=== PATIENT | male | born 2000 | race Native Hawaiian/Other Pacific Islander ===

== ENCOUNTER 2023-04-03 15:55 | Emergency (ER) | payer OTHER ==
[~2023-04-03] VITALS: Ht 172 cm; Wt 72.5 kg
[2023-04-03 15:57] VITALS: BP 139/69
--- NOTE | 2023-04-03 16:13 | ED Head Injury ---
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 This occurred shortly prior to arrival. He knows he bit his tongue and he has difficulty opening his mouth all the way now. He did have loss of consciousness and has been vomiting since then. He is also having some right ear pain. His tetanus is up-to-date. Denies any pain anywhere else on his body. Allergies and Home Medications Allergies Coded Allergies: Penicillins (Verified Allergy, Unknown, 04/03/23) Sulfa (Sulfonamide Antibiotics) (Verified Allergy, Unknown, 04/03/23) Patient Home Medication List Home Medication List Reviewed: Yes Clindamycin HCl (Clindamycin HCl) 300 Mg Capsule, 300 MG PO TID Prescribed by: DEIRDRE MORTENSEN on 04/03/23 170 Hydrocodone/Acetaminophen (Hydrocodone-Acetamin 5-325 mg) 5 Mg-325 Mg Tablet, 1 TAB PO Q6H PRN for PAIN-MODERATE (5-7) Prescribed by: DEIRDRE MORTENSEN on 04/03/23 170 Ondansetron (Ondansetron Odt) 4 Mg Tab.rapdis, 4 MG SL Q6H PRN for NAUSEA/VOMITING Prescribed by: DEIRDRE MORTENSEN on 04/03/23 1708 Review of Systems Review of Systems Constitutional: No fever Eyes: No Symptoms Reported Ears, Nose, Mouth, Throat: see HPI Respiratory: no symptoms reported Cardiovascular: no symptoms reported Gastrointestinal: no symptoms reported Genitourinary: no symptoms reported Musculoskeletal: see HPI Skin: see HPI Psychiatric/Neurological: No Symptoms Reported Past [id number]-Nrfdyq Hx Past Medical History Surgeries: Yes Tonsillectomy Physical Exam Vital Signs Vital Signs - First Documented 04/03/23 15:57 Temp 36.6 Pulse 75 Resp 16 B/P (MAP) 139/69 (92) Pulse Ox 100 O2 Delivery Room Air Capillary Refill : Height, Weight, BMI Height: '" Weight: lbs. oz. kg; BMI Method: General Appearance: WD/WN, no apparent distress HEENT: PERRL/EOMI, TMs normal, pharynx normal, other (blood in the canal on the right with normal TM, minor trismus with right jaw pain, laceration to the bottom right side of tongue) Neck: non-tender, full range of motion, supple, normal inspection Cardiovascular: regular rate, rhythm, no edema, no murmur Respiratory: chest non-tender, lungs clear, normal breath sounds, no respiratory distress, no accessory muscle use Gastrointestinal: normal bowel sounds, non tender, soft; No distended, No guarding, No rebound Back: normal inspection, no CVA tenderness, no vertebral tenderness Extremities: normal range of motion, non-tender, normal inspection, no pedal edema, no calf tenderness, normal capillary refill Psychiatric: alert, oriented x 3 Crainal Nerves: normal hearing, normal speech, PERRL Coordination/Gait: normal finger to nose, normal gait Motor/Sensory: no motor deficit, no sensory deficit Skin: normal color, warm/dry, other (chin laceration) Isela Coma Score Best Eye Response: (4) Open Spontaneously Best Verbal Response: (5) Oriented Best Motor Response: (6) Obeys Commands Procedures/Interventions Wound Location: Face Other Wound Location chin x2 (1.5cm and 2 cm) tongue 2.5cm Wound's Depth, Shape: superficial Wound Explored: clean Irrigated w/ Saline (ccs): 500 Betadine Prep?: Yes Anesthesia: Lidocaine w/ Epi Volume Anesthetic (ccs): 4 Suture Size: 5-0 (fast absorbing gut) Other Closure Supply: Wound Adhesive Number of Sutures: 3 Progress 1 suture in the 1-1/2 cm laceration and 2 sutures in the 2 cm laceration with glue used as well tongue lac used 5-0 chromic gut (3 sutures) Progress/Results/Core Measures Results/Orders My Orders Orders - DEIRDRE MORTENSEN MD Ct Head/Face/Cervical Wo (04/03/23 16:09) Ondansetron Oral Dissolve Tab (Ondanset (04/03/23 16:16) Lidocaine 2% W/Epi 1:100,000 (Xylocaine/ (04/03/23 16:30) Clindamycin Capsule (Clindamycin Capsule (04/03/23 17:00) Hydrocodone/Apap 5/325 Tablet (Hydrocod (04/03/23 17:15) Medications Given in ED Current Medications Medications Dose Ordered Sig/Lonny Route Start Time Stop Time Status Last Admin Dose Admin Acetaminophen/ Hydrocodone Bitart 1 ea ONCE ONCE PO 04/03/23 17:15 04/03/23 17:16 DC 04/03/23 17:15 1 EA Clindamycin HCl 300 mg ONCE ONCE PO 04/03/23 17:00 04/03/23 17:01 DC 04/03/23 17:16 300 MG Lidocaine/ Epinephrine 20 ml ONCE ONCE INJ 04/03/23 16:30 04/03/23 16:31 DC 04/03/23 16:34 20 ML Vital Signs/I&O 04/03/23 04/03/23 15:57 16:52 Temp 36.6 Pulse 75 64 Resp 16 16 B/P (MAP) 139/69 (92) 118/66 (83) Pulse Ox 100 100 O2 Delivery Room Air Room Air Progress Progress Note : Progress Note 22-year-old male with above history coming in after hit in the head by a ball. ABCs were intact, GCS 15, vital stable on presentation. He has a laceration to his tongue and 2 to his chin with a small cut in his right ear as well. The wounds were all cleaned, the chin lacerations were closed with absorbable suture. Chromic gut placed into the tongue laceration. It is not gaping and I think that would be appropriate. CT of the head, face, cervical spine ordered and interpreted by me showing a right sided mandible fracture which is mildly displaced. I will refer him to a facial surgeon. Will give him the clindamycin since it is technically an open fracture of his jaw, although data is lacking if this would even be beneficial. I believe he is stable for discharge with outpatient follow-up. He was sent home with strict return precautions. Diagnostic Imaging Diagonstic Imaging: CT (head, face, c spine) Comments [facility], [place] NAME: CLIFFORD MARKHAM MED REC#: [id number] PT STATUS: REG ER : 2000 PHYSICIAN: DEIRDRE MORTENSEN MD ADMIT DATE: 04/03/23/ER FS Signed Date of Exam:04/03/23 CT HEAD/FACE/CERVICAL WO PROCEDURE: CT head, face and cervical spine without contrast. TECHNIQUE: Multiple contiguous axial images were obtained through the head, neck, and facial bones without the use of intravenous contrast. Sagittal and coronal reformations through the cervical spine and facial bones were also performed. Auto Exposure Controls were utilized during the CT exam to meet ALARA standards for radiation dose reduction. INDICATION: Trauma. Head injury. Facial laceration. Bucked off of bull. COMPARISON: None. FINDINGS: CT HEAD: No intracranial hemorrhage, mass effect, hydrocephalus or extra-axial fluid collection. No CT evidence of territorial infarction. Mastoids are clear. The calvarium is intact. CT MAXILLOFACIAL: Comminuted overriding displaced fracture of the right mandibular condyle. The distal fragment is anterior to the condylar fossa. No other mandibular fracture. Soft tissue gas about the fractures. No other maxillofacial fracture. The paranasal sinuses are clear. The orbits are unremarkable. CT CERVICAL SPINE: Straightening of the normal cervical lordosis. Vertebral body heights are preserved. No substantial spondylotic change. No fracture. No CT evidence of neural impingement. Paravertebral soft tissues are unremarkable. Lung apices are clear. IMPRESSION: 1. Comminuted overlying displaced fracture of the right mandibular condyle with the distal fragment anterior to the condylar fossa. There is soft tissue gas about the fractures. 2. No acute intracranial or cervical spine CT finding. Dictated by: Dictated on workstation # [id number] Dict: 04/03/23 1633 Trans: 04/03/231657 [facility] [id number] Interpreted by: MARA COBOS MD Electronically signed by: MARA COBOS MD 04/03/231657 Departure Impression Primary Impression: Mandible fracture Qualified Codes: S02.611B - Fracture of condylar process of right mandible, initial encounter for open fracture Additional Impressions: Chin laceration Qualified Codes: S01.81XA - Laceration without foreign body of other part of head, initial encounter Tongue laceration Qualified Codes: S01.512A - Laceration without foreign body of oral cavity, initial encounter Disposition: 01 HOME, SELF-CARE Condition: Stable Departure-Patient Inst. Decision time for Depature: 16:15 Patient Instructions: Laceration Repair With Stitches ED, Jaw Fracture Add. Discharge Instructions: Your jaw is broken and you unfortunately do have a concussion. You will be on antibiotics for the next few days as well as some nausea medicine if you need them. Hydrocodone was sent to the pharmacy for pain as well. You can take ibuprofen with this as needed. The stitches will absorb and you do not need to have them taken out. Use salt water rinses on your mouth a couple times a day for the next week to help with the tongue laceration. Only eat soft mechanical food such as soup, applesauce, protein shakes, or anything that you do not have to chew. Follow-up with the face/surgeon of your choosing SUSAN. One option is the doctor listed below in [place] at [facility]: [facility] [address] [place] [address] [address] [place] [id number] Scripts Clindamycin HCl (Clindamycin HCl) 300 Mg Capsule 300 MG PO TID for 5 Days, #15 CAP Prov: DEIRDRE MORTENSEN MD 04/03/23 Ondansetron (Ondansetron Odt) 4 Mg Tab.rapdis 4 MG SL Q6H PRN for NAUSEA/VOMITING for 5 Days, #20 TAB Prov: DEIRDRE MORTENSEN MD 04/03/23 Hydrocodone/Acetaminophen (Hydrocodone-Acetamin 5-325 mg) 5 Mg-325 Mg Tablet 1 TAB PO Q6H PRN for PAIN-MODERATE (5-7) for 3 Days, #12 TAB Prov: DEIRDRE MORTENSEN MD 04/03/23 DEIRDRE MORTENSEN MD Apr 03, 2023 16:13
[2023-04-03] MEDS ORDERED: ONDANSETRON 4 MG ORAL DISSOLVE TABLET PO STA (16:16)
[2023-04-03] MEDS ORDERED: LIDOCAINE 2% w/EPI 1:100,000 20 ML VIAL INJ ONE (16:30)
--- NOTE | 2023-04-03 16:51 | Diagnostic Imaging Report ---
PROCEDURE: CT head, face and cervical spine without contrast. TECHNIQUE: Multiple contiguous axial images were obtained through the head, neck, and facial bones without the use of intravenous contrast. Sagittal and coronal reformations through the cervical spine and facial bones were also performed. Auto Exposure Controls were utilized during the CT exam to meet ALARA standards for radiation dose reduction. INDICATION: Trauma. Head injury. Facial laceration. Bucked off of bull. COMPARISON: None. FINDINGS: CT HEAD: No intracranial hemorrhage, mass effect, hydrocephalus or extra-axial fluid collection. No CT evidence of territorial infarction. Mastoids are clear. The calvarium is intact. CT MAXILLOFACIAL: Comminuted overriding displaced fracture of the right mandibular condyle. The distal fragment is anterior to the condylar fossa. No other mandibular fracture. Soft tissue gas about the fractures. No other maxillofacial fracture. The paranasal sinuses are clear. The orbits are unremarkable. CT CERVICAL SPINE: Straightening of the normal cervical lordosis. Vertebral body heights are preserved. No substantial spondylotic change. No fracture. No CT evidence of neural impingement. Paravertebral soft tissues are unremarkable. Lung apices are clear. IMPRESSION: 1. Comminuted overlying displaced fracture of the right mandibular condyle with the distal fragment anterior to the condylar fossa. There is soft tissue gas about the fractures. 2. No acute intracranial or cervical spine CT finding. Dictated by: Dictated on workstation # [id number]
[2023-04-03] MEDS ORDERED: CLINDAMYCIN 150 MG CAPSULE PO ONE (17:00)
[2023-04-03] MEDS ORDERED: CLIN-144 PO (17:08)
[2023-04-03] MEDS ORDERED: ACHD5005 PO (17:08)
[2023-04-03] MEDS ORDERED: ONDA4TAB11 SL (17:08)
[2023-04-03] MEDS ORDERED: HYDROcodone/ACETAMINOPHEN 5 MG/325 MG TABLET PO ONE (17:15)
== END 2023-04-03 17:30 | disposition home or self-care (01) ==
LOC: ER FS 15:58
DX: S02.611A Fracture of condylar process of right mandible, initial encounter for closed fracture (principal); S01.512A Laceration without foreign body of oral cavity, initial encounter; Z88.0 Allergy status to penicillin; Z88.2 Allergy status to sulfonamides; W55.22XA Struck by cow, initial encounter
CPT/HCPCS: 70450; 70486; 72125